=== PATIENT | female | born 1945 | race Caucasian/White ===

== ENCOUNTER 2021-01-29 09:32 | Inpatient (IN) ==
[2021-01-29] MEDS ORDERED: 0.9 % Sodium Chloride 500 ML IVC ONE (09:41)
[2021-01-29] MEDS ORDERED: Morphine Sulfate 2 MG/ML SYRINGE IVP ONE (10:07)
[2021-01-29 10:13] LABS: Basophils # 0.1 K/mcL (0.0-0.2); Basophils % 0.5 %; Eosinophils # 0.2 K/mcL (0.0-0.6); Eosinophils % 2.2 %; Hematocrit 43.1 % (35.3-44.9); Hemoglobin 13.7 g/dL (11.5-15.4); Immature Granulocytes % 0.6 % (0-4); Lymphocytes # 2.3 K/mcL (0.6-4.6); Lymphocytes % 23.5 %; Mean Corpuscular HGB Conc 31.8 g/dL (31.6-35.5); Mean Corpuscular Hemoglobin 29.3 pg (28.0-33.3); Mean Corpuscular Volume 92.3 fL (83.0-100.0); Mean Platelet Volume 8.2 fL (9.4-12.4); Monocytes # 1.1 K/mcL (0.0-1.3); Monocytes % 11.1 %; Neutrophils # 6.1 K/mcL (1.6-8.9); Platelet Count 262 K/mcL (140-400); Red Blood Count 4.67 M/mcL (3.82-4.97); Red Cell Distribution Width 12.9 % (11.5-14.5); Segmented Neutrophils % 62.1 %; White Blood Count 9.9 K/mcL (4.3-11.1)
[2021-01-29 10:20] LABS: Prothrombin Time 11.2 Seconds (9.4-12.1)
[2021-01-29 10:34] LABS: Alanine Aminotransferase 12 Units/L (7-52); Albumin 3.8 g/dL (3.5-5.7); Albumin/Globulin Ratio 1.5 (1.1-2.2); Alkaline Phosphatase 56 Units/L (34-104); Aspartate Amino Transferase 16 Units/L (13-39); BUN/Creatinine Ratio 21 (6-26); Bilirubin,Indirect 0.4 mg/dL (0.0-1.0); Bilirubin,Total 0.4 mg/dL (0.3-1.0); Blood Urea Nitrogen 18 mg/dL (8-23); Calcium 9.2 mg/dL (8.6-10.3); Carbon Dioxide 28 mEq/L (23-29); Chloride 104 mEq/L (98-107); Creatine Kinase 39 Units/L (30-223); Globulin 2.6 g/dL (2.4-3.5); Glucose 201 mg/dL (70-105); Lipase 82 Units/L (11-82); Osmolality,Calculated 296 (280-300); Potassium 4.6 mEq/L (3.5-5.1); Sodium 139 mEq/L (136-145); Total Protein 6.4 g/dL (6.4-8.9); eGFR For African Americans > 60 (> 60); eGFR For Non-African Americans > 60 (> 60)
[2021-01-29 10:35] LABS: Troponin I < 0.03 ng/mL (< 0.04)
[2021-01-29] MEDS ORDERED: Naloxone 0.4 MG/ML INJ IVP PRN (11:05)
[2021-01-29] MEDS ORDERED: Ondansetron 4 MG/2 ML VIAL IVP PRN (11:05)
[2021-01-29] MEDS ORDERED: Acetaminophen 325 MG TABLET PO PRN (11:05)
[2021-01-29 11:10] LABS: Bilirubin,Urine Negative (Negative); Blood,Urine Negative (Negative); Clarity,Urine Clear (Clear); Color,Urine Yellow (Yellow); Glucose,Urine (UA) Normal (Normal); Hyaline Casts,Urine Few per lpf (None Seen); Ketones,Urine Negative (Negative); Leukocyte Esterase,Urine Trace (Negative); Mucus,Urine Few per lpf (None-Few); Nitrite,Urine Negative (Negative); PH,Urine 5.5 pH Units (5.0-8.0); Protein,Urine 30 mg/dL (Neg-Trace); Squamous Epithelial Cell,Urine Few per hpf (None-Few); Urobilinogen,Urine Normal (Normal)
[2021-01-29] MEDS ORDERED: Isovue-370 500 ML BOTTLE IVP ONE (11:22)
[2021-01-29] MEDS ORDERED: *HR* Heparin 5,000 UNIT/ML VIAL IVP PRN ×2 (18:19)
[2021-01-29] MEDS ORDERED: *HR* Heparin 5,000 UNIT/ML VIAL IVP ONE (18:19)
[2021-01-29] MEDS ORDERED: Perflutren Lipid Microsphere 1.3 ML in 0.9 % Sodium Chloride 8.7 ML IVP PRN (18:32)
[2021-01-29] MEDS: Heparin 25,000UNIT/250ML 1/2NS 25,000 UNIT/250 ML IV.SOLN IVC SCH (18:39)
[2021-01-29] MEDS ORDERED: Dextrose Gel 15 GM/37.5 ML TUBE PO PRN ×2 (20:29)
[2021-01-29] MEDS ORDERED: D5% in Water 1,000 ML IVC PRN (20:29)
[2021-01-29] MEDS ORDERED: *HR* Dextrose 50 % in Water (Vial) 50 ML VIAL IVP PRN (20:29)
[2021-01-29] MEDS: Insulin LISPRO 300 UNITS/3 ML VIAL SUBQ SCH ×2 (22:25)
[2021-01-30] MEDS: Heparin 25,000UNIT/250ML 1/2NS 25,000 UNIT/250 ML IV.SOLN IVC SCH (00:44)
[2021-01-30] MEDS: Melatonin 3 MG TABLET PO PRN (00:48)
[2021-01-30 00:51] LABS: Basophils # 0.1 K/mcL (0.0-0.2); Basophils % 0.4 %; Eosinophils # 0.2 K/mcL (0.0-0.6); Eosinophils % 1.4 %; Hematocrit 43.5 % (35.3-44.9); Hemoglobin 13.8 g/dL (11.5-15.4); Immature Granulocytes % 0.4 % (0-4); Lymphocytes # 3.5 K/mcL (0.6-4.6); Lymphocytes % 28.3 %; Mean Corpuscular HGB Conc 31.7 g/dL (31.6-35.5); Mean Corpuscular Hemoglobin 29.3 pg (28.0-33.3); Mean Corpuscular Volume 92.4 fL (83.0-100.0); Mean Platelet Volume 8.4 fL (9.4-12.4); Monocytes # 1.3 K/mcL (0.0-1.3); Monocytes % 10.7 %; Neutrophils # 7.3 K/mcL (1.6-8.9); Platelet Count 249 K/mcL (140-400); Red Blood Count 4.71 M/mcL (3.82-4.97); Red Cell Distribution Width 12.9 % (11.5-14.5); Segmented Neutrophils % 58.8 %; White Blood Count 12.5 K/mcL (4.3-11.1)
[2021-01-30 01:30] LABS: BUN/Creatinine Ratio 21 (6-26); Blood Urea Nitrogen 14 mg/dL (8-23); Calcium 8.8 mg/dL (8.6-10.3); Carbon Dioxide 21 mEq/L (23-29); Chloride 103 mEq/L (98-107); Glucose 117 mg/dL (70-105); Osmolality,Calculated 286 (280-300); Potassium 4.1 mEq/L (3.5-5.1); Sodium 137 mEq/L (136-145); eGFR For African Americans > 60 (> 60); eGFR For Non-African Americans > 60 (> 60)
[2021-01-30] MEDS ORDERED: Morphine Sulfate 2 MG/ML SYRINGE IVP ONE (06:12)
[2021-01-30] MEDS: Insulin LISPRO 300 UNITS/3 ML VIAL SUBQ SCH ×4 (07:26→20:38)
[2021-01-30] MEDS: Aspirin Enteric Coated 81 MG Tablet PO SCH (10:53)
[2021-01-30] MEDS ORDERED: ISOVUE-370 200 ML INFUS..BTL ONE (13:10)
[2021-01-30] MEDS ORDERED: *HR* Heparin 10,000 UNIT/10 ML VIAL ONE (13:10)
[2021-01-30] MEDS ORDERED: Heparin 1,000 UNITS/500 mL 500 ML ONE (13:10)
[2021-01-30] MEDS ORDERED: 0.9 % Sodium Chloride 1,000 ML ONE ×2 (13:11)
[2021-01-30] MEDS ORDERED: Nitroglycerin 1,000 MCG/5 ML VIAL IV ONE (13:11)
[2021-01-30] MEDS ORDERED: *HR* FentaNYL (PF) 100 MCG/2 ML VIAL ONE (14:25)
[2021-01-30] MEDS ORDERED: *HR* Midazolam HCl 2 MG/2 ML VIAL ONE (14:25)
[2021-01-30] MEDS ORDERED: *HR* LORazepam 2 MG/ML VIAL IVP ONE (18:02)
[2021-01-30] MEDS: Nicotine 7 MG PATCH.TD24 TD SCH (18:46)
[2021-01-30] MEDS ORDERED: Haloperidol Lactate 5 MG/ML VIAL IVP ONE (20:01)
[2021-01-31 02:48] LABS: Basophils % 0.3 %; Eosinophils # 0.1 K/mcL (0.0-0.6); Eosinophils % 1.2 %; Hematocrit 40.4 % (35.3-44.9); Hemoglobin 13.2 g/dL (11.5-15.4); Immature Granulocytes % 0.3 % (0-4); Lymphocytes % 25.8 %; Mean Corpuscular HGB Conc 32.7 g/dL (31.6-35.5); Mean Corpuscular Hemoglobin 29.8 pg (28.0-33.3); Mean Corpuscular Volume 91.2 fL (83.0-100.0); Mean Platelet Volume 8.4 fL (9.4-12.4); Monocytes # 1.4 K/mcL (0.0-1.3); Monocytes % 12.1 %; Neutrophils # 7.1 K/mcL (1.6-8.9); Platelet Count 249 K/mcL (140-400); Red Blood Count 4.43 M/mcL (3.82-4.97); Red Cell Distribution Width 12.9 % (11.5-14.5); Segmented Neutrophils % 60.3 %; White Blood Count 11.7 K/mcL (4.3-11.1)
[2021-01-31 02:58] LABS: BUN/Creatinine Ratio 13 (6-26); Blood Urea Nitrogen 11 mg/dL (8-23); Calcium 8.9 mg/dL (8.6-10.3); Carbon Dioxide 27 mEq/L (23-29); Chloride 103 mEq/L (98-107); Glucose 164 mg/dL (70-105); Osmolality,Calculated 291 (280-300); Potassium 3.6 mEq/L (3.5-5.1); Sodium 139 mEq/L (136-145); eGFR For African Americans > 60 (> 60); eGFR For Non-African Americans > 60 (> 60)
[2021-01-31] MEDS: Aspirin Enteric Coated 81 MG Tablet PO SCH (08:16)
[2021-01-31] MEDS: Insulin LISPRO 300 UNITS/3 ML VIAL SUBQ SCH ×4 (08:25→20:07)
[2021-01-31] MEDS: Metoprolol XL (24 HR) Succ 25 MG TAB.ER.24H PO SCH (10:23)
[2021-01-31] MEDS ORDERED: Nitroglycerin 0.4 MG TAB.SUBL SL ONE (10:53)
[2021-01-31] MEDS: Nitroglycerin 0.4 MG TAB.SUBL SL PRN ×2 (11:07→15:04)
[2021-01-31] MEDS ORDERED: Isosorbide MONOnitrate (24 HR) 30 MG TAB.ER.24H PO SCH (12:30)
[2021-01-31] MEDS: Heparin 25,000UNIT/250ML 1/2NS 25,000 UNIT/250 ML IV.SOLN IVC SCH (18:19)
[2021-01-31] MEDS: Nicotine 7 MG PATCH.TD24 TD SCH (18:21)
[2021-01-31] MEDS: Melatonin 3 MG TABLET PO PRN (20:03)
[2021-02-01 06:34] LABS: Basophils % 0.3 %; Eosinophils # 0.1 K/mcL (0.0-0.6); Eosinophils % 1.1 %; Hematocrit 38.1 % (35.3-44.9); Hemoglobin 12.7 g/dL (11.5-15.4); Immature Granulocytes % 0.4 % (0-4); Lymphocytes # 2.2 K/mcL (0.6-4.6); Lymphocytes % 22.4 %; Mean Corpuscular HGB Conc 33.3 g/dL (31.6-35.5); Mean Corpuscular Hemoglobin 30.3 pg (28.0-33.3); Mean Corpuscular Volume 90.9 fL (83.0-100.0); Mean Platelet Volume 8.6 fL (9.4-12.4); Monocytes # 1.2 K/mcL (0.0-1.3); Monocytes % 12.1 %; Neutrophils # 6.4 K/mcL (1.6-8.9); Platelet Count 241 K/mcL (140-400); Red Blood Count 4.19 M/mcL (3.82-4.97); Red Cell Distribution Width 13.1 % (11.5-14.5); Segmented Neutrophils % 63.7 %
[2021-02-01 06:49] LABS: BUN/Creatinine Ratio 9 (6-26); Blood Urea Nitrogen 6 mg/dL (8-23); Calcium 8.7 mg/dL (8.6-10.3); Carbon Dioxide 30 mEq/L (23-29); Chloride 103 mEq/L (98-107); Glucose 159 mg/dL (70-105); Osmolality,Calculated 287 (280-300); Potassium 3.8 mEq/L (3.5-5.1); Sodium 138 mEq/L (136-145); eGFR For African Americans > 60 (> 60); eGFR For Non-African Americans > 60 (> 60)
[2021-02-01] MEDS: Aspirin Enteric Coated 81 MG Tablet PO SCH (08:31)
[2021-02-01] MEDS: Metoprolol XL (24 HR) Succ 25 MG TAB.ER.24H PO SCH (08:32)
[2021-02-01] MEDS: Ranolazine 500 MG TAB.ER.12H PO SCH ×2 (08:32→19:46)
[2021-02-01] MEDS: Insulin LISPRO 300 UNITS/3 ML VIAL SUBQ SCH ×4 (08:32→21:34)
[2021-02-01] MEDS: Nitroglycerin 0.4 MG TAB.SUBL SL PRN ×3 (16:48→18:09)
[2021-02-01] MEDS: Nicotine 7 MG PATCH.TD24 TD SCH (17:49)
[2021-02-01] MEDS ORDERED: *HR* Heparin 5,000 UNIT/ML VIAL IVP ONE (17:59)
[2021-02-01] MEDS ORDERED: *HR* Heparin 5,000 UNIT/ML VIAL IVP PRN ×2 (17:59)
[2021-02-01] MEDS ORDERED: Heparin 25,000UNIT/250ML 1/2NS 25,000 UNIT/250 ML IV.SOLN IVC SCH (18:00)
[2021-02-01] MEDS: Morphine Sulfate 2 MG/ML SYRINGE IVP PRN (18:03)
[2021-02-01 18:50] LABS: Hematocrit 41.4 % (35.3-44.9); Mean Corpuscular HGB Conc 31.4 g/dL (31.6-35.5); Mean Corpuscular Hemoglobin 29.1 pg (28.0-33.3); Mean Corpuscular Volume 92.8 fL (83.0-100.0); Mean Platelet Volume 8.6 fL (9.4-12.4); Platelet Count 266 K/mcL (140-400); Red Blood Count 4.46 M/mcL (3.82-4.97); Red Cell Distribution Width 13.2 % (11.5-14.5); White Blood Count 9.8 K/mcL (4.3-11.1)
[2021-02-01 18:59] LABS: Prothrombin Time 12.1 Seconds (9.4-12.1)
[2021-02-01 19:24] LABS: Heparin anti-factor XA UFH < 0.04 IU/mL (0.30-0.70)
[2021-02-01 21:57] LABS: Estimated Average Glucose 157 mg/dl; Hemoglobin A1C 7.1 %
[2021-02-02] MEDS: Nitroglycerin 0.4 MG TAB.SUBL SL PRN ×2 (04:25→05:11)
[2021-02-02] MEDS ORDERED: *HR* Enoxaparin 40 MG/0.4 ML SYRINGE SQ SCH (06:00)
[2021-02-02] MEDS: Insulin LISPRO 300 UNITS/3 ML VIAL SUBQ SCH ×4 (08:33→19:55)
[2021-02-02] MEDS: Metoprolol XL (24 HR) Succ 25 MG TAB.ER.24H PO SCH (08:33)
[2021-02-02] MEDS: Aspirin Enteric Coated 81 MG Tablet PO SCH (08:33)
[2021-02-02] MEDS: Ranolazine 500 MG TAB.ER.12H PO SCH ×2 (08:58→19:47)
[2021-02-02] MEDS ORDERED: Ipratropium/Albuterol Neb 3 ML IH PRN (12:34)
[2021-02-02] MEDS: predniSONE 20 MG TABLET PO SCH (13:08)
[2021-02-02] MEDS ORDERED: Perflutren Lipid Microsphere 1.3 ML in 0.9 % Sodium Chloride 8.7 ML IVP PRN (15:46)
[2021-02-02] MEDS: Nicotine 7 MG PATCH.TD24 TD SCH (17:27)
[2021-02-02] MEDS: Melatonin 3 MG TABLET PO PRN (19:47)
[2021-02-02] MEDS: Morphine Sulfate 2 MG/ML SYRINGE IVP PRN (19:47)
[2021-02-03] MEDS: Insulin LISPRO 300 UNITS/3 ML VIAL SUBQ SCH (08:34)
[2021-02-03] MEDS: Metoprolol XL (24 HR) Succ 25 MG TAB.ER.24H PO SCH ×2 (08:34→08:56)
[2021-02-03] MEDS: Aspirin Enteric Coated 81 MG Tablet PO SCH (08:56)
[2021-02-03] MEDS: Ranolazine 500 MG TAB.ER.12H PO SCH (08:57)
[2021-02-03] MEDS: predniSONE 20 MG TABLET PO SCH (08:57)
[2021-02-03 11:27] VITALS: BP 106/61; PULSE 75; TEMP 98.1; O2SAT 96
== END 2021-02-03 13:30 | disposition home or self-care (01) | DRG 281 ==
LOC: 3BNU 09:32 → EMEROOARM 09:32 → SUATTDRO 11:16 → 3BNU 12:34 → SUATTDRO 01-30 18:38
PROVIDERS: ADMIT Pharmacist; ATTEND Registered Nurse